=== PATIENT | male | born 1955 | race Caucasian/White ===

== ENCOUNTER → 2020-07-14 | Outpatient (CLI) | payer MEDICARE, OTHER ==
[~2020-07-14] MED LIST: AMLODIPINE-BEN1 EAC1 PO; GABAPENTIN600 MG PO; LOTREL 10-40 M1 EACH PO; METHOCARBAMOL750 MG PO; NEURONTIN600 MG PO; PERCOCET 5/325 T1 EA PO; POTASSIUM CHLO20 ME1 PO; ROBAXIN-750750 MG PO
== END ==
LOC: HEART 5 15:27
DX: J60 Coalworker's pneumoconiosis (principal); R05 Cough; R06.2 Wheezing
CPT/HCPCS: 94010; 94729